=== PATIENT | female | born 2000 | race Caucasian/White ===

== ENCOUNTER 2024-06-20 12:37 | Emergency (ER) | payer SELFPAY ==
[2024-06-20 12:46] VITALS: BP 132/80
--- NOTE | 2024-06-20 14:24 | ED.GENMED ---
History of Present Illness
General
Chief Complaint: Ear Problem
Source: patient
Exam Limitations: none
Time Seen by Provider: 06/20/24 13:45
Nursing documentation reviewed up to this point in time: agreed with
History of Present Illness
History of Present Illness:
24-year-old female presents emergency department due to a cyst in her left ear ongoing for the past several days. She went to urgent care and then [place] [facility] but they did not drain it. She then came to [place].
Past History
Past History
ED Past Medical History: None
ED Past Surgical History: Orthopedic (Left ACL and meniscus repair)
Social History
Tobacco: Non-smoker
Alcohol: None
Drug: None
Review of Systems
Review of Systems
Allergies reviewed?: Yes
All Other Systems: Not applicable
Constitutional: Reports no symptoms
EENT: Reports no symptoms
Respiratory: Reports no symptoms
Cardiac: Reports no symptoms
ABD/GI: Reports no symptoms
: Reports no symptoms
Musculoskeletal: Reports no symptoms
Skin: Reports no symptoms
Neurological: Reports no symptoms
Endocrine: Reports no symptoms
Hematologic/Lymphatic: Reports no symptoms
Psychiatric: Reports no symptoms
Phy Exam
Physical Exam
Physical Exam:
Physical Exam
General: no apparent distress, not acutely ill
Neck: supple. no meningeal signs. normal posterior pharynx
Heart: equal radial pulses.
,
HEENT: Pupils equal round reactive to light, EOMI, cyst posterior to left tragus
Lungs: no acute respiratory distress.
Abdomen: normal bowel sounds. not tender. no CVAT
Neuro: alert and oriented. no focal neurological deficits
Skin: no rash
Psychiatric: well kept. interactive and cooperative
Extremities: no edema. good distal pulses
Course
Vital Signs
Initial and Last Documented VS:
Initial Vital Signs
Temp Pulse Resp BP Pulse Ox
98.4 F 75 18 132/80 100
06/20/24 12:46 06/20/24 12:46 06/20/24 12:46 06/20/24 12:46 06/20/24 12:46
Last Documented Vital Signs
Temp Pulse Resp BP Pulse Ox
98.4 F 75 18 132/80 100
06/20/24 12:46 06/20/24 12:46 06/20/24 12:46 06/20/24 12:46 06/20/24 12:46
MDM/Problems Addressed
Differential Diagnosis Includes:
abscess, sebaceous cyst
MDM/Problems Addressed:
24 yo female with cyst on ear, likely sebaceous cyst. D/w Dr. Brock, ENT, who recommends ciprodex drops and keflex. Will f/u in office.
*Pulse Oximetry
Patient hypoxic: no
*Critical Care Note
Total Time (30-74mins, 75-104mins- exclusive of procedures): Not Applicable
Patient Management
Social determinants of health affecting care: Living situation
Discussion with other providers: Employee Benefits Insurance Agent (ENT, Dr. Brock)
Escalation/DeEscalation of care consider admission/obs:
admit not indicated
ED Attending Note
-
Portions of this chart may have been created with voice recognition software.� Occasional wrong word or��sound alike� substitutions may have occurred due to the inherent limitations of voice recognition software.
Discharge Plan
Departure
Patient Disposition: Home (Routine Discharge)
Date of Disposition: 06/20/24
Time of Disposition: 14:31
Patient with high blood pressure during this ER visit?: Yes
Condition: Good
Discharge Problem:
Sebaceous cyst of ear
Instructions: Epidermal Cyst (DC), BLOOD PRESSURE
Prescriptions:
New
cephalexin 500 mg capsule
500 mg PO TID 7 Days Qty: 21 0RF
Cipro HC 0.2-1 % drops,suspension
3 drp otic (ear) BID 7 Days Qty: 10 0RF
Referrals:
Russ Brock MD [Active] - Call in 1-3 days for appt
Interventions
Interventions:
*Risk Screen - Suicide Last Done: 06/20/24 12:46
*General Assessment Last Done: 06/20/24 12:46
*Neglect/Abuse Screening Last Done: 06/20/24 12:46
*ED COVID-19 Vaccine History Last Done: 06/20/24 12:46
Discharge Date and Time
Print Language: ITALIAN
== END 2024-06-20 15:45 | disposition home or self-care (01) ==
LOC: EMR 12:37
PROVIDERS: EMERGENCY PHYSICIAN Emergency Medicine
DX: L72.3 Sebaceous cyst (principal)
CPT/HCPCS: 99282